=== PATIENT | female | born 1965 | race Caucasian/White ===

== ENCOUNTER 2017-11-13 16:41 | Emergency (ER) | payer OTHER, SELFPAY ==
[2017-11-13 16:48] VITALS: BP 117/56; PULSE 53; RESP 18; TEMP 36.5; O2SAT 100; BMI 21.4
--- NOTE | 2017-11-13 17:02 | DI.RAD.S_ITS ---
PROCEDURE: XR ANKLE RT MIN 3V INDICATIONS: R ankle pain. Injury from twist R ankle TECHNIQUE: 2 views of the ankle were acquired. COMPARISON: None. FINDINGS: Bones: There are comminuted fractures of the distal tibial and fibular shafts. There is extension of the fibular fracture to the tibiotalar syndesmosis which appears slightly widened. There is slight lateral angulation of the distal component. There is slight posterior angulation of the tibial fracture. Soft tissues: No tibiotalar joint effusion. Achilles tendon appears intact. IMPRESSION: 1. Comminuted fractures of the distal tibia and fibula as described. Dictated by: Daniele Shipley M.D. on 11/13/2017 at 17:37 Approved by: Daniele Shpiley M.D. on 11/13/2017 at 17:46
--- NOTE | 2017-11-13 17:33 | ED.LOWEXIN ---
HPI - Extremity Injury (Lower) <Hilary Dietz PA-C - Last Filed: 11/13/17 22:07> General Chief Complaint: Extremity Injury, Lower Stated Complaint: RIGHT ANKLE INJURY Time Seen by Provider: 11/13/17 16:59 Source: patient Mode of arrival: wheelchair Limitations: no limitations and physical limitation History of Present Illness HPI Narrative: this 51-year-old female was getting off of her boat when she got her right ankle caught on the dock line, and was hung up and fell. She had pain right away and was unable to walk on that side. She denies any other injury, no head contusion or LOC. She states that she simply tripped and did not have any dizziness, chest pain, or other new symptoms leading up to the fall. Last meal and drinks just over 3 hours ago. Related Data Home Medications Medication Instructions Recorded Confirmed levothyroxine 1 tab PO DAILY 11/13/17 11/13/17 Previous Rx's Medication Instructions Recorded hydrocodone-acetaminophen 2 tab PO Q6H PRN #12 tab 11/13/17 Allergies Allergy/AdvReac Type Severity Reaction Status Date / Time No Known Drug Allergies Allergy Verified 11/13/17 16:59 Review of Systems <Hilary Dietz PA-C - Last Filed: 11/13/17 22:07> Review of Systems All systems reviewed & are unremarkable except as noted in HPI and below PFSH <Hilary Dietz PA-C - Last Filed: 11/13/17 22:07> Comment: + ETOH, no street drugs Exam <SIMON Leigh Last Filed: 11/13/17 22:07> Initial Vital Signs Initial Vital Signs: Vital Signs Temperature 97.7 F 11/13/17 16:48 Pulse Rate 53 L 11/13/17 16:48 Respiratory Rate 18 11/13/17 16:48 Blood Pressure 117/56 L 11/13/17 16:48 Pulse Oximetry 100 11/13/17 16:48 GENERAL APPEARANCE: Patient sitting comfortably, in no distress. LUNGS: Clear to auscultation bilaterally. HEART: Rate and rhythm regular without murmur, normal S1 and S2, no S3 or S4. MUSCULOSKELETAL: Right distal LE/proximal ankle effusion, ankle and foot held in lateral deviation. tender throughout these areas, no tenderness over the metatarsals, toes, tavarez or knee. NEUROVASCULAR: Right foot sensation is grossly intact, DP pulse + <Ochoa Shaffer DO - Last Filed: 11/13/17 23:44> Initial Vital Signs Initial Vital Signs: Vital Signs Temperature 97.7 F 11/13/17 16:48 Pulse Rate 53 L 11/13/17 16:48 Respiratory Rate 18 11/13/17 16:48 Blood Pressure 117/56 L 11/13/17 16:48 Pulse Oximetry 100 11/13/17 16:48 Course <Hilary Dietz PA-C - Last Filed: 11/13/17 22:07> Additional Information: Posterior and U splint placed per nursing and Dr. Shaffer (LE straightened a little bit to place). Patient tolerated well and reported feeling more comfortable in the splint. Instructed regarding need for nonweightbearing, elevation and she is agreeable. Spoke with Dr. Leon who reviewed films and advised that surgery is needed, but patient could be splinted and follow up on Wednesday as outpatient. Patient will return if any problems over the weekend, otherwise will call Dr. Leon's office 1st thing on Wednesday to arrange for follow-up and surgical scheduling. Orders Ordered: ED Orders 11/13/17 17:02 XR ankle RT min 3V Stat 11/13/17 17:50 CT LE RT wo con Stat Discontinued Medications Hydrocodone Bitart/Acetaminophen ([place] 5/325) 2 tab PO NOW ONE Stop: 11/13/17 17:59 Last Admin: 11/13/17 18:12 Dose: Hydrocodone Bitart/Acetaminophen (Vicodin Prepack) 1 bottle MISC SEEINSTR ONE Stop: 11/13/17 20:02 Last Admin: 11/13/17 20:19 Dose: 1 bottle Hydromorphone HCl (Dilaudid) 0.5 mg IV NOW ONE Stop: 11/13/17 18:12 Last Admin: 11/13/17 18:16 Dose: 0.5 mg Ibuprofen (Advil) 400 mg PO NOW ONE Stop: 11/13/17 18:52 Last Admin: 11/13/17 19:14 Dose: 400 mg Naproxen (Naprosyn) 500 mg PO NOW ONE Stop: 11/13/17 17:59 Last Admin: 11/13/17 18:13 Dose: Vital Signs - 8 hr 11/13/17 16:48 11/13/17 19:11 11/13/17 20:47 Temperature 97.7 F Pulse Rate 53 L 59 L 74 Respiratory Rate 18 18 18 Blood Pressure 117/56 L 115/67 Blood Pressure [Left Arm] 96/57 L Pulse Oximetry 100 97 98 <Ochoa Shaffer DO - Last Filed: 11/13/17 23:44> Orders Ordered: ED Orders 11/13/17 17:02 XR ankle RT min 3V Stat 11/13/17 17:50 CT LE RT wo con Stat Discontinued Medications Hydrocodone Bitart/Acetaminophen ([place] 5/325) 2 tab PO NOW ONE Stop: 11/13/17 17:59 Last Admin: 11/13/17 18:12 Dose: Hydrocodone Bitart/Acetaminophen (Vicodin Prepack) 1 bottle MISC SEEINSTR ONE Stop: 11/13/17 20:02 Last Admin: 11/13/17 20:19 Dose: 1 bottle Hydromorphone HCl (Dilaudid) 0.5 mg IV NOW ONE Stop: 11/13/17 18:12 Last Admin: 11/13/17 18:16 Dose: 0.5 mg Ibuprofen (Advil) 400 mg PO NOW ONE Stop: 11/13/17 18:52 Last Admin: 11/13/17 19:14 Dose: 400 mg Naproxen (Naprosyn) 500 mg PO NOW ONE Stop: 11/13/17 17:59 Last Admin: 11/13/17 18:13 Dose: Vital Signs - 8 hr 11/13/17 16:48 11/13/17 19:11 11/13/17 20:47 Temperature 97.7 F Pulse Rate 53 L 59 L 74 Respiratory Rate 18 18 18 Blood Pressure 117/56 L 115/67 Blood Pressure [Left Arm] 96/57 L Pulse Oximetry 100 97 98 MDM - Extremity Injury (Lower) <Hilary Dietz PA-C - Last Filed: 11/13/17 22:07> Imaging Data tib fib: Radiologist's impression: [address] [address] [address] Scan Report Signed Patient: TESS FRANKS LMR#: [id number] : 1965Acct:[id number] Age/Sex: 51 / FDate of Service: 11/13/17 Loc: ED Accession Number: [id number] Procedure: CT LE RT wo con Ordering Provider: Hilary Dietz P.A-C PROCEDURE: CT LE RT WO CON INDICATIONS: tib fib fx TECHNIQUE: Noncontrast 1-1.5 mm axial sections acquired from above the tibiotalar joint to the bottom of the calcaneus, with coronal and sagittal reformats. COMPARISON: None. FINDINGS: Image quality: Excellent. Bones: There is a comminuted fracture of the distal tibial diaphysis. There is also a minimally displaced fracture of the posterior malleolus of the distal tibia extending to the tibiotalar joint. There is also mildly displaced fracture of the lateral tibia distally along the tibiotalar joint. A comminuted fracture is demonstrated in the distal fibular shaft extending to the tibiofibular syndesmosis. No proximal tibial or fibular fracture. There is a fixation darwin within the visualized distal femur and fixation screw. Soft tissues: There is soft tissue edema along the distal tibial and fibular fractures. Visualized flexor, extensor, peroneal, and Achilles tendons appear grossly intact. IMPRESSION: 1. Comminuted fractures of the distal tibia and fibula as described. Dictated by: Daniele Shipley M.D. on 11/13/2017 at 19:43 Approved by: Daniele Shipley M.D. on 11/13/2017 at 2 [facility] DATE TYPE STATUS AUTHOR Shiloh 11/13/17 17:50 Daniele Shipley 11/13/17 17:02 Daniele Shipley Delfin Franksi L 51, F103/01/1965 DEP ER, ED - [facility] ED: R12 162.56cm 56.699kg BSA: 1.60m? BMI: 21.5kg/m? Extremity Injury, Lower Search Chart No Known Drug Allergies ONSET Today 20:[address] [address] XRay Report Signed Patient: TESS FRANKS LMR#: [id number] : 1965Acct:[id number] Age/Sex: 51 / FDate of Service: 11/13/17 Loc: ED Accession Number: [id number] Procedure: XR ankle RT min 3V Ordering Provider: Hilary Dietz P.A-C PROCEDURE: XR ANKLE RT MIN 3V INDICATIONS: R ankle pain. Injury from twist R ankle TECHNIQUE: 2 views of the ankle were acquired. COMPARISON: None. FINDINGS: Bones: There are comminuted fractures of the distal tibial and fibular shafts. There is extension of the fibular fracture to the tibiotalar syndesmosis which appears slightly widened. There is slight lateral angulation of the distal component. There is slight posterior angulation of the tibial fracture. Soft tissues: No tibiotalar joint effusion. Achilles tendon appears intact. IMPRESSION: 1. Comminuted fractures of the distal tibia and fibula as described. Dictated by: Daniele Shipley M.D. on 11/13/2017 at 17:37 Approved by: Daniele Shipley M.D. on 11/13/2017 at 17:46 Discharge Plan Departure Patient Disposition: Home Clinical Impression: Tibia/fibula fracture Discharge Date/Time: 11/13/17 20:30 Interventions: ED Discharge Assessment Last Done: 11/13/17 20:47 Instructions: DI for Shinbone Fracture Activity Restrictions/Additional Instructions: please keep the splint on at all times. You should not be weight-bearing on your right leg at all. Use the crutches when you are getting to the bathroom or bed. Keep your leg elevated at all times otherwise (prop it up on pillows above your heart). Take the pain medicine prescribed as needed, and you can also continue your usual Naproxen/Aleve along with this. follow-up as we talked about if you have any acutely worsening symptoms or problems with your splint over the weekend. I have talked with Dr. Leon who is financial reporting consultant for [facility], and she has reviewed your films. She advises that this does need surgery, but that you can go home for the weekend. She wants you to call her office 1st thing on Wednesday morning, and be seen there on Wednesday so that they can coordinate and schedule with you for surgery next week. She will coordinate things on her and, but when you call on Wednesday, be sure to let the medical office receptionist assistant know that Dr. Leon said you need to be seen on Wednesday Prescriptions: New hydrocodone-acetaminophen 5-325 mg tablet 2 tab PO Q6H PRN (Reason: fracture pain) Qty: 12 RF: 0 No Action levothyroxine 88 mcg tablet 1 tab PO DAILY RF: 0 Referrals: Afua Funk MD [Non-Staff] - Yadira Leon MD [Physician] - <Ochoa Shaffer DO - Last Filed: 11/13/17 23:44> Cosign ED Attending Liborio Attestation: I was available for consultation during this patient's emergency department encounter
--- NOTE | 2017-11-13 17:37 | ED_ITS ---
HPI - Extremity Injury (Lower) <Hilary Dietz PA-C - Last Filed: 11/13/17 22:07> General Chief Complaint: Extremity Injury, Lower Stated Complaint: RIGHT ANKLE INJURY Time Seen by Provider: 11/13/17 16:59 Source: patient Mode of arrival: wheelchair Limitations: no limitations and physical limitation History of Present Illness HPI Narrative: this 51-year-old female was getting off of her boat when she got her right ankle caught on the dock line, and was hung up and fell. She had pain right away and was unable to walk on that side. She denies any other injury, no head contusion or LOC. She states that she simply tripped and did not have any dizziness, chest pain, or other new symptoms leading up to the fall. Last meal and drinks just over 3 hours ago. Related Data Home Medications Medication Instructions Recorded Confirmed levothyroxine 1 tab PO DAILY 11/13/17 11/13/17 Previous Rx's Medication Instructions Recorded hydrocodone-acetaminophen 2 tab PO Q6H PRN #12 tab 11/13/17 Allergies Allergy/AdvReac Type Severity Reaction Status Date / Time No Known Drug Allergies Allergy Verified 11/13/17 16:59 Review of Systems <Hilary Dietz PA-C - Last Filed: 11/13/17 22:07> Review of Systems All systems reviewed & are unremarkable except as noted in HPI and below PFSH <Hilary Dietz PA-C - Last Filed: 11/13/17 22:07> Comment: + ETOH, no street drugs Exam <SIMON Leigh Last Filed: 11/13/17 22:07> Initial Vital Signs Initial Vital Signs: Vital Signs Temperature 97.7 F 11/13/17 16:48 Pulse Rate 53 L 11/13/17 16:48 Respiratory Rate 18 11/13/17 16:48 Blood Pressure 117/56 L 11/13/17 16:48 Pulse Oximetry 100 11/13/17 16:48 GENERAL APPEARANCE: Patient sitting comfortably, in no distress. LUNGS: Clear to auscultation bilaterally. HEART: Rate and rhythm regular without murmur, normal S1 and S2, no S3 or S4. MUSCULOSKELETAL: Right distal LE/proximal ankle effusion, ankle and foot held in lateral deviation. tender throughout these areas, no tenderness over the metatarsals, toes, tavarez or knee. NEUROVASCULAR: Right foot sensation is grossly intact, DP pulse + <Ochoa Shaffer DO - Last Filed: 11/13/17 23:44> Initial Vital Signs Initial Vital Signs: Vital Signs Temperature 97.7 F 11/13/17 16:48 Pulse Rate 53 L 11/13/17 16:48 Respiratory Rate 18 11/13/17 16:48 Blood Pressure 117/56 L 11/13/17 16:48 Pulse Oximetry 100 11/13/17 16:48 Course <Hilary Dietz PA-C - Last Filed: 11/13/17 22:07> Additional Information: Posterior and U splint placed per nursing and Dr. Shaffer (LE straightened a little bit to place). Patient tolerated well and reported feeling more comfortable in the splint. Instructed regarding need for nonweightbearing, elevation and she is agreeable. Spoke with Dr. Leon who reviewed films and advised that surgery is needed, but patient could be splinted and follow up on Wednesday as outpatient. Patient will return if any problems over the weekend, otherwise will call Dr. Leon's office 1st thing on Wednesday to arrange for follow-up and surgical scheduling. Orders Ordered: ED Orders 11/13/17 17:02 XR ankle RT min 3V Stat 11/13/17 17:50 CT LE RT wo con Stat Discontinued Medications Hydrocodone Bitart/Acetaminophen ([place] 5/325) 2 tab PO NOW ONE Stop: 11/13/17 17:59 Last Admin: 11/13/17 18:12 Dose: Hydrocodone Bitart/Acetaminophen (Vicodin Prepack) 1 bottle MISC SEEINSTR ONE Stop: 11/13/17 20:02 Last Admin: 11/13/17 20:19 Dose: 1 bottle Hydromorphone HCl (Dilaudid) 0.5 mg IV NOW ONE Stop: 11/13/17 18:12 Last Admin: 11/13/17 18:16 Dose: 0.5 mg Ibuprofen (Advil) 400 mg PO NOW ONE Stop: 11/13/17 18:52 Last Admin: 11/13/17 19:14 Dose: 400 mg Naproxen (Naprosyn) 500 mg PO NOW ONE Stop: 11/13/17 17:59 Last Admin: 11/13/17 18:13 Dose: Vital Signs - 8 hr 11/13/17 16:48 11/13/17 19:11 11/13/17 20:47 Temperature 97.7 F Pulse Rate 53 L 59 L 74 Respiratory Rate 18 18 18 Blood Pressure 117/56 L 115/67 Blood Pressure [Left Arm] 96/57 L Pulse Oximetry 100 97 98 <Ochoa Shaffer DO - Last Filed: 11/13/17 23:44> Orders Ordered: ED Orders 11/13/17 17:02 XR ankle RT min 3V Stat 11/13/17 17:50 CT LE RT wo con Stat Discontinued Medications Hydrocodone Bitart/Acetaminophen ([place] 5/325) 2 tab PO NOW ONE Stop: 11/13/17 17:59 Last Admin: 11/13/17 18:12 Dose: Hydrocodone Bitart/Acetaminophen (Vicodin Prepack) 1 bottle MISC SEEINSTR ONE Stop: 11/13/17 20:02 Last Admin: 11/13/17 20:19 Dose: 1 bottle Hydromorphone HCl (Dilaudid) 0.5 mg IV NOW ONE Stop: 11/13/17 18:12 Last Admin: 11/13/17 18:16 Dose: 0.5 mg Ibuprofen (Advil) 400 mg PO NOW ONE Stop: 11/13/17 18:52 Last Admin: 11/13/17 19:14 Dose: 400 mg Naproxen (Naprosyn) 500 mg PO NOW ONE Stop: 11/13/17 17:59 Last Admin: 11/13/17 18:13 Dose: Vital Signs - 8 hr 11/13/17 16:48 11/13/17 19:11 11/13/17 20:47 Temperature 97.7 F Pulse Rate 53 L 59 L 74 Respiratory Rate 18 18 18 Blood Pressure 117/56 L 115/67 Blood Pressure [Left Arm] 96/57 L Pulse Oximetry 100 97 98 MDM - Extremity Injury (Lower) <Hilary Dietz PA-C - Last Filed: 11/13/17 22:07> Imaging Data tib fib: Radiologist's impression: [address] [address] [address] Scan Report Signed Patient: TESS FRANKS LMR#: [id number] : 1965Acct:[id number] Age/Sex: 51 / FDate of Service: 11/13/17 Loc: ED Accession Number: [id number] Procedure: CT LE RT wo con Ordering Provider: Hilary Dietz P.A-C PROCEDURE: CT LE RT WO CON INDICATIONS: tib fib fx TECHNIQUE: Noncontrast 1-1.5 mm axial sections acquired from above the tibiotalar joint to the bottom of the calcaneus, with coronal and sagittal reformats. COMPARISON: None. FINDINGS: Image quality: Excellent. Bones: There is a comminuted fracture of the distal tibial diaphysis. There is also a minimally displaced fracture of the posterior malleolus of the distal tibia extending to the tibiotalar joint. There is also mildly displaced fracture of the lateral tibia distally along the tibiotalar joint. A comminuted fracture is demonstrated in the distal fibular shaft extending to the tibiofibular syndesmosis. No proximal tibial or fibular fracture. There is a fixation darwin within the visualized distal femur and fixation screw. Soft tissues: There is soft tissue edema along the distal tibial and fibular fractures. Visualized flexor, extensor, peroneal, and Achilles tendons appear grossly intact. IMPRESSION: 1. Comminuted fractures of the distal tibia and fibula as described. Dictated by: Daniele Shipley M.D. on 11/13/2017 at 19:43 Approved by: Daniele Shipley M.D. on 11/13/2017 at 2 [facility] DATE TYPE STATUS AUTHOR [place] 11/13/17 17:50 Daniele Shipley 11/13/17 17:02 Daniele Shipley Delfin Franksi L 51, F103/01/1965 DEP ER, ED - Main ED: R12 162.56cm 56.699kg BSA: 1.60m? BMI: 21.5kg/m? Extremity Injury, Lower Search Chart No Known Drug Allergies ONSET Today 20:[address] [address] XRay Report Signed Patient: TESS FRANKS LMR#: [id number] : 1965Acct:[id number] Age/Sex: 51 / FDate of Service: 11/13/17 Loc: ED Accession Number: [id number] Procedure: XR ankle RT min 3V Ordering Provider: Hilary Dietz P.A-C PROCEDURE: XR ANKLE RT MIN 3V INDICATIONS: R ankle pain. Injury from twist R ankle TECHNIQUE: 2 views of the ankle were acquired. COMPARISON: None. FINDINGS: Bones: There are comminuted fractures of the distal tibial and fibular shafts. There is extension of the fibular fracture to the tibiotalar syndesmosis which appears slightly widened. There is slight lateral angulation of the distal component. There is slight posterior angulation of the tibial fracture. Soft tissues: No tibiotalar joint effusion. Achilles tendon appears intact. IMPRESSION: 1. Comminuted fractures of the distal tibia and fibula as described. Dictated by: Daniele Shipley M.D. on 11/13/2017 at 17:37 Approved by: Daniele Shipley M.D. on 11/13/2017 at 17:46 Discharge Plan Departure Patient Disposition: Home Clinical Impression: Tibia/fibula fracture Discharge Date/Time: 11/13/17 20:30 Interventions: ED Discharge Assessment Last Done: 11/13/17 20:47 Instructions: DI for Shinbone Fracture Activity Restrictions/Additional Instructions: please keep the splint on at all times. You should not be weight-bearing on your right leg at all. Use the crutches when you are getting to the bathroom or bed. Keep your leg elevated at all times otherwise (prop it up on pillows above your heart). Take the pain medicine prescribed as needed, and you can also continue your usual Naproxen/Aleve along with this. follow-up as we talked about if you have any acutely worsening symptoms or problems with your splint over the weekend. I have talked with Dr. Leon who is regional business manager for orthopedics [facility], and she has reviewed your films. She advises that this does need surgery, but that you can go home for the weekend. She wants you to call her office 1st thing on Wednesday morning, and be seen there on Wednesday so that they can coordinate and schedule with you for surgery next week. She will coordinate things on her and , but when you call on Wednesday, be sure to let the applied psychology chair know that Dr. Leon said you need to be seen on Wednesday Prescriptions: New hydrocodone-acetaminophen 5-325 mg tablet 2 tab PO Q6H PRN (Reason: fracture pain) Qty: 12 RF: 0 No Action levothyroxine 88 mcg tablet 1 tab PO DAILY RF: 0 Referrals: Afua Funk MD [Non-Staff] - Yadira Leon MD [Physician] - <Ochoa Shaffer DO - Last Filed: 11/13/17 23:44> Cosign ED Attending Liborio Attestation: I was available for consultation during this patient's emergency department encounter
--- NOTE | 2017-11-13 17:50 | DI.CT.S_ITS ---
PROCEDURE: CT LE RT WO CON INDICATIONS: tib fib fx TECHNIQUE: Noncontrast 1-1.5 mm axial sections acquired from above the tibiotalar joint to the bottom of the calcaneus, with coronal and sagittal reformats. COMPARISON: None. FINDINGS: Image quality: Excellent. Bones: There is a comminuted fracture of the distal tibial diaphysis. There is also a minimally displaced fracture of the posterior malleolus of the distal tibia extending to the tibiotalar joint. There is also mildly displaced fracture of the lateral tibia distally along the tibiotalar joint. A comminuted fracture is demonstrated in the distal fibular shaft extending to the tibiofibular syndesmosis. No proximal tibial or fibular fracture. There is a fixation darwin within the visualized distal femur and fixation screw. Soft tissues: There is soft tissue edema along the distal tibial and fibular fractures. Visualized flexor, extensor, peroneal, and Achilles tendons appear grossly intact. IMPRESSION: 1. Comminuted fractures of the distal tibia and fibula as described. Dictated by: Daniele Shipley M.D. on 11/13/2017 at 19:43 Approved by: Daniele Shipley M.D. on 11/13/2017 at 20:04
[2017-11-13] MEDS: HYDROMORPHONE 1 MG INJ 0.5 MG IV (18:16)
--- NOTE | 2017-11-13 18:47 | PC.NURSE ---
posterior and stir up
[2017-11-13 19:11] VITALS: BP 96/57; PULSE 59; RESP 18; O2SAT 97
[2017-11-13] MEDS: IBUPROFEN 400 MG TABLET PO (19:14)
[2017-11-13] MEDS: HYDROCODONE/ACET 5/325 PREPACK 1 BOTTLE MISC (20:19)
[2017-11-13 20:47] VITALS: BP 115/67; PULSE 74; RESP 18; O2SAT 98
--- NOTE | 2017-11-18 16:26 | PC.NURSE ---
Pt feeling better following visit,pt did not have anything that we could have improved on
== END 2017-11-13 20:30 | disposition home or self-care (01) ==
PROVIDERS: Emergency Provider Internal Medicine
DX: S82.201A Unspecified fracture of shaft of right tibia, initial encounter for closed fracture (principal); S82.401A Unspecified fracture of shaft of right fibula, initial encounter for closed fracture; W18.43XA Slipping, tripping and stumbling without falling due to stepping from one level to another, initial encounter
CPT/HCPCS: 29515; 73610; 73700; 96374; 99283; 99284; J1170

== ENCOUNTER 2017-11-15 13:28 | Day surgery (SDC) | payer OTHER, SELFPAY ==
[2017-11-15] VITALS (11 sets, daily range): BP systolic 100–132; BP diastolic 63–79; PULSE 64–80; RESP 10–18; TEMP 36.6–37.1; O2SAT 96–100; BMI 22.1
--- NOTE | 2017-11-15 | DI.RAD.S_ITS ---
PROCEDURE: XR ANKLE RT 2V INDICATIONS: ORIF RIGHT ANKLE TECHNIQUE: 4 views of the ankle were acquired. COMPARISON: [facility], CR, XR ANKLE RT MIN 3V, 11/13/2017, 17:17. FINDINGS: 4 spot fluoroscopic intraoperative views demonstrating plate and screw fixation of the distal tibia and fibula. There is expected intraoperative alignment. Dictated by: Ahmet Gonzales M.D. on 11/16/2017 at 10:28 Approved by: Ahmet Gonzales M.D. on 11/16/2017 at 10:28
--- NOTE | 2017-11-15 | DI.RAD.S_ITS ---
PROCEDURE: XR ANKLE RT MIN 3V INDICATIONS: POST OPERATIVE RIGHT ANKLE TECHNIQUE: 3 views of the ankle were acquired. COMPARISON: Preoperative imaging 11/13/17 and subsequently.. FINDINGS: Bones: No previously unidentified fractures or dislocations. Virtual anatomic alignment established after ORIF across the multiple complex comminuted fracture planes previously present. Ankle mortise is normally aligned. No suspicious bony lesions. Soft tissues: No tibiotalar joint effusion. Achilles tendon appears normal. IMPRESSION: Virtual anatomic alignment established after ORIF of a previously complex comminuted and significantly displaced set of fractures involving the distal tibia and fibula. Dictated by: Geovanni Guo M.D. on 11/15/2017 at 19:59 Approved by: Geovanni Guo M.D. on 11/15/2017 at 20:01
[2017-11-15] MEDS: LACTATED RINGERS 1,000 ML 42 ML IV ×2 (13:51→17:57)
--- NOTE | 2017-11-15 15:39 | PM.PREOP ---
Pre-operative Note Interval Note Pre-op Check: Yes History & Physical Reviewed by Physician and Yes Exam Performed Changes: No
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
[2017-11-15] MEDS: CEFAZOLIN 2 GM/100 ML FROZ.PIGGY IV ×2 (16:08→23:52)
--- NOTE | 2017-11-15 16:42 | SUR.OPER ---
Supine on padded OR bed, head on pillow, arms secured on padded arm boards at <90 degrees abduction, legs uncrossed, safety belt at thigh, tape over blanket over lower legs.
[2017-11-15] MEDS: BUPIVACAINE 0.5% W/ EPI (PF) VIAL 30 ML INJ (16:55)
--- NOTE | 2017-11-15 20:13 | PC.NURSE ---
[place] shift note: Patient admitted to AC form PACU S/P ORIF tibia/fibula FX by Dr. Leon. Patient awake, alert and calm, cooperative. Long soft half cast to posterior leg extending from mid foot to below the knee, secured with apollo wrap. CMS intact to RLE. SCD to LLE. No c/o pain, discomfort, and nausea. Patient sitting up in bed tolerating PO intake and fluids. VSS and afebrile. Call light within reach.
[2017-11-15] MEDS: ASPIRIN EC 81 MG TABLET PO (20:55)
[2017-11-15] MEDS: DOCUSATE 100 MG CAPSULE PO (20:55)
[2017-11-15] MEDS: LACTATED RINGERS 1,000 ML 75 ML IV (20:56)
[2017-11-15] MEDS: HYDROCODONE/ACET 5/325 TABLET 2 TAB PO (21:00)
[2017-11-15] MEDS: HYDROMORPHONE 2 MG TABLET PO (23:52)
[2017-11-16 00:25] VITALS: BP 116/69; PULSE 70; RESP 15; TEMP 36.7; O2SAT 98
--- NOTE | 2017-11-16 00:51 | PC.NURSE ---
shift note met with pt at start of shift. AOx3. 98% on RA. Bowel sounds present. Good CMS. No numbness/ tingling. Trace +1 non pitting edema on right foot. No drainage, soft cast on right leg secured with apollo bandage. Pain 5/10. Provided PRN dilaudid. Pt currently asleep. Call light in reach.
[2017-11-16] MEDS: HYDROCODONE/ACET 5/325 TABLET 2 TAB PO ×2 (04:12→10:32)
[2017-11-16 04:24] VITALS: BP 112/60; PULSE 64; RESP 16; TEMP 36.7; O2SAT 98
[2017-11-16] MEDS: LEVOTHYROXINE 88 MCG TABLET PO (06:49)
[2017-11-16 07:01] LABS: Hematocrit 29.1 % (36-46); Hemoglobin 9.7 g/dL (12.0-16.0); Mean Corpuscular HGB Conc 33.4 % (30-36); Mean Corpuscular Hemoglobin 31.3 PG (26-34); Mean Corpuscular Volume 93.8 fL (80-100); Platelet Count 179 X10^3/uL (150-400); Red Cell Distribution Width 13.4 % (11.6-14.8); White Blood Cell Count 14.4 X10^3/uL (4.5-11.0)
[2017-11-16 07:30] VITALS: BP 107/60; PULSE 64; RESP 16; TEMP 36.9; O2SAT 99
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
[2017-11-16 08:37] VITALS: PULSE 71; RESP 14; O2SAT 97
[2017-11-16] MEDS: CEFAZOLIN 2 GM/100 ML FROZ.PIGGY IV (08:49)
[2017-11-16] MEDS: POLYETHYLENE GLYCOL 3350 17 GM POWD.PACK PO (08:50)
[2017-11-16] MEDS: ASPIRIN EC 81 MG TABLET PO (08:50)
[2017-11-16] MEDS: DOCUSATE 100 MG CAPSULE PO (08:50)
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
--- NOTE | 2017-11-16 10:17 | PC.NURSE ---
Addendum entered by Cassy Lemos R.N. 11/16/17 14:28: Reviewed w/ SIMON Riley that pt is suppose to d/c home on ASA 81mg po BID, RX discharge paperwork updated by this RN to reflect changes. Pt aware to make f/u appt and follow non-weight bearing to RLE. Pt left with all belongings. Original Note: Pt A&Ox3. Soft cast intact to RLE, unable to palpate pedal pulse due to cast, able to wiggle toes. Toes warm/dry. 2nd dose of IV ABX infused. IV H.L. Noted d/c orders home, pending P.T. eval.
[2017-11-16 11:30] VITALS: BP 107/62; PULSE 82; RESP 16; TEMP 37.1; O2SAT 99
--- NOTE | 2017-11-16 13:42 | PT.IPTN ---
Current Diagnoses Unspecified fracture of shaft of right tibia, initial encounter for closed fracture (11/15/17) Surgery Performed Operation Date: 11/15/17 15:00 Actual Procedures p ORIF Tibia & fibula Ankle(Right) - Yadira Leon MD Physical Therapy Treatment Note M2 PT-IP Current Condition Start: 11/16/17 12:35 Freq: NEEDED Status: Discharge Protocol: Document 11/16/17 09:35 AB (Rec: 11/16/17 13:13 AB [id number]) Physical Therapy Current Condition Current Condition Evaluation Date 11/16/17 Treatment Diagnosis s/p R tib/fib fracture s/p ORIF Onset Date 11/15/17 Precautions Brace R ankle on a soft cast Weight Bearing Status Weight Bearing Status Non-Weight Bearing M3 PT-IP Subjective Start: 11/16/17 12:35 Freq: NEEDED Status: Discharge Protocol: Document 11/16/17 13:42 AB (Rec: 11/16/17 15:25 AB [id number]) Subjective Physical Therapy Visit Type Type Treatment Note Visit Start Time 13:42 Visit Stop Time 14:07 Total Visit Minutes 25 Number of ROOFER VINYL COATING Visits 0 Physical Therapy Visit Comments Patient Comments spouse present for caregiver training Therapy Pain Assessment Pain When Pain Assessed At Rest Pain Present Pain Present Pain Reported Location Right Leg Scale Used pain scale not stated M4 PT-IP Mobility and Gait Start: 11/16/17 12:35 Freq: NEEDED Status: Discharge Protocol: Document 11/16/17 13:42 AB (Rec: 11/16/17 15:25 AB [id number]) PT-Bed Mobility Assessment Supine to Sit Supine to Sit Standby Assistance Sit to Supine Sit to Supine Standby Assistance PT-Transfer Assessment Sit to and From Stand Sit to and from Stand Standby Assistance Gait Assessment Gait Gait Assistance Required: Standby Assistance Distance (Feet) 50 Able to Maintain Weight Bearing Status Yes During Gait Assistive Devices Assistive Device Gait Belt Orthotic/Prosthetic Devices or Brace: No Factors Limiting Gait Function Factors Limiting Gait Function Decreased Activity Tolerance Decreased Strength Limited Range of Motion Pain Poor Balance Comments Gait Comments pt educated on how to use knee scooter/roller and completed ambulation requiring SBA ~ 50 ft x 2. Stair Climbing Assessment Evaluation Level of Assist On Stairs Moderate Assistance Maximal Assistance 1 Person Assistance Devices Stair Climbing Assistive Devices Axillary Crutches Technique/Endurance Stair Climbing Direction Ascend and Descend Stair Climbing Technique Step to Step Number of Steps Climbed 1 Query Text: Stair Climbing Set # Repetitions (reps) 2 Comments Stair Climbing Comments pt completed up/down platform step mod to max A and max cues for techniques and to maintain weight bearing status . spouse was able to assist pt with stair climbing. pt stated that she is not comfortable doing stairs with use of crutches. spouse stated that pt doing sitting bump was really safe and that she did not put weight on her RLE while doing that prior to surgery. spouse also stated that he can assist pt as well. M5 PT-IP Objective Assessments Start: 11/16/17 12:35 Freq: NEEDED Status: Discharge Protocol: Document 11/16/17 09:35 AB (Rec: 11/16/17 13:13 AB [id number]) Orientation Orientation/Cognition Level of Alertness Alert Orientation Name Age Birthday Month Date Year Day of Week Place Situation Safety Awareness Understands Safety Issues Gross Range of Motion Lower Extremity ROM Assessment Right Impaired Impairments R ankle on soft case Strength Lower Extremity Strength Assessment Right Impaired Ankle NT Sensation Assessment Sensation Gross Sensation Right LE Impaired Sensation Description Numbness Comments Sensation Comments c/o slight numbness on R ankle Muscle Tone Muscle Tone WNL Yes M6 PT-IP Treatment Start: 11/16/17 12:35 Freq: NEEDED Status: Discharge Protocol: Document 11/16/17 13:42 AB (Rec: 11/16/17 15:25 [id number]) Physical Therapy Treatment Education Education Provided Weight Bearing Status Safety M7 PT-IP Assessment and Plan Start: 11/16/17 12:35 Freq: NEEDED Status: Discharge Protocol: Document 11/16/17 13:42 AB (Rec: 11/16/17 15:25 [id number]) PT Summary Assessment and Plan Potential Rehabilitation Potential Fair Summary Impairments Pain ROM Strength Balance Bed Mobility Transfers Gait Activity Tolerance Progress Towards Goals Slow Progress - Other Assessment Summary pt requiring SBA with ambulation using knee scooter/ roller. spouse is capable of assisting pt at home. Goals Bed Mobility Goal Independent Transfer Goal Independent Gait Goal Independent Crutches Gait Distance 100 Other Goals Short term goals: increase bed mobility and transfers to independent log term goal: increase ambulation to least restrictive device SBA ~ 100 ft Days to Meet Goals 3 Frequency of Treatment Frequency Of Treatment Twice a Day Treatment Plan Physical Therapy Treatment Plan Bed Mobility Training Transfer Training Gait Training Therapeutic Exercise Balance Retraining Post Op Education Discharge Planning Hot or Cold Pack Neuromuscular Re-ed Coordination Retraining Manual Therapy Other Recommendations and Next Treatment caregiver training; ambulation Focus using knee scooter/roller, bilateral crutches, stair climbing using crutches Recommendations To Nursing Amount of Assist Needed 1 Person Assist Discharge Recommendations PT Discharge Recommendations Home with Assistance Home Health
--- NOTE | 2017-11-16 14:15 | PM.DS.1 ---
History of Present Illness Chief complaint: [id number] Narrative: Patient sustained fractures of her distal right tibia and fibula when [place] the dock. She was brought to hospital on 11/15/2017 for right distal tibia-fibula ORIF by Dr. Leon. She remained stable postoperatively. Pain controlled with [place]. She will be at home with her helping her. She does have a roll about for ambulation. Discharge Providers Consults: 11/15/17 19:56 Consult to Discharge Planning Routine Comment: Consult to Physical Therapy Evaluate & Treat Comment: nwb right lower extremity Physician Instructions: Evaluate and Treat Consult to Respiratory Therapy Evaluate & Treat Comment: Physician Instructions: Evaluate and treat Discharge provider: Edgardo Harrison PA-C Discharge Date: 11/16/17 Exam Vital Signs (past 8 hours): - 11/16/17 07:30 11/16/17 08:37 11/16/17 11:30 Temperature 98.5 F 98.7 F Pulse Rate 64 71 82 Respiratory Rate 16 14 16 Blood Pressure 107/60 107/62 Pulse Oximetry 99 97 99 Oxygen Delivery Method Room Air Objective Labs Result Diagrams: 11/16/17 06:40 Labs: Laboratory Results - last 24 hr 11/16/17 06:40 WBC 14.4 H RBC 3.10 L Hgb 9.7 L Hct 29.1 L MCV 93.8 MCH 31.3 MCHC 33.4 RDW 13.4 Plt Count 179 Discharge Plan Discharge Plan Patient Disposition: Home Discharge comment: She will be nonweightbearing to her right leg. Keep postoperative splint and dressing in place until postop visit. She has prescription at home for hydrocodone for pain. Follow-up appointment at [facility] office in [place] in 10-12 days postop. Discharge Med Rec/Prescriptions Prescriptions: New aspirin 81 mg Tablet,Delayed Release (Dr/Ec) 81 mg PO BID Qty: 60 RF: 0 Continue levothyroxine 88 mcg tablet 1 tab PO DAILY RF: 0 Discontinued hydrocodone-acetaminophen 5-325 mg tablet 2 tab PO Q6H PRN (Reason: fracture pain) Qty: 12 RF: 0 Discharge Orders: Discharge (Order); Ordered 11/16/17 Ordered By: Edgardo Harrison Provider Discharge Instructions Diet: Diet as Tolerated Activity: Nonweightbearing right leg Visit Report/Discharge Packet Instructions: DI for Open Reduction Internal Fixation Surgery, DI for Tibial Plateau Fracture Stand Alone Forms: Surgery Discharge Discharge Data Attending Provider: Yadira Leon
--- NOTE | 2017-11-16 14:18 | P.DS_ITS ---
History of Present Illness Chief complaint: [id number] Narrative: Patient sustained fractures of her distal right tibia and fibula when [place] the dock. She was brought to hospital on 2017 for right distal tibia-fibula ORIF by Dr. Leon. She remained stable postoperatively. Pain controlled with [place]. She will be at home with her helping her. She does have a roll about for ambulation. Discharge Providers Consults: 11/15/17 19:56 Consult to Discharge Planning Routine Comment: Consult to Physical Therapy Evaluate & Treat Comment: nwb right lower extremity Physician Instructions: Evaluate and Treat Consult to Respiratory Therapy Evaluate & Treat Comment: Physician Instructions: Evaluate and treat Discharge provider: Edgardo Harrison PA-C Discharge Date: 11/16/17 Exam Vital Signs (past 8 hours): - 11/16/17 07:30 11/16/17 08:37 11/16/17 11:30 Temperature 98.5 F 98.7 F Pulse Rate 64 71 82 Respiratory Rate 16 14 16 Blood Pressure 107/60 107/62 Pulse Oximetry 99 97 99 Oxygen Delivery Method Room Air Objective Labs Result Diagrams: 11/16/17 06:40 Labs: Laboratory Results - last 24 hr 11/16/17 06:40 WBC 14.4 H RBC 3.10 L Hgb 9.7 L Hct 29.1 L MCV 93.8 MCH 31.3 MCHC 33.4 RDW 13.4 Plt Count 179 Discharge Plan Discharge Plan Patient Disposition: Home Discharge comment: She will be nonweightbearing to her right leg. Keep postoperative splint and dressing in place until postop visit. She has prescription at home for hydrocodone for pain. Follow-up appointment at [facility] office in [place] in 10-12 days postop. Discharge Med Rec/Prescriptions Prescriptions: New aspirin 81 mg Tablet,Delayed Release (Dr/Ec) 81 mg PO BID Qty: 60 RF: 0 Continue levothyroxine 88 mcg tablet 1 tab PO DAILY RF: 0 Discontinued hydrocodone-acetaminophen 5-325 mg tablet 2 tab PO Q6H PRN (Reason: fracture pain) Qty: 12 RF: 0 Discharge Orders: Discharge (Order); Ordered 11/16/17 Ordered By: Edgardo Harrison Provider Discharge Instructions Diet: Diet as Tolerated Activity: Nonweightbearing right leg Visit Report/Discharge Packet Instructions: DI for Open Reduction Internal Fixation Surgery, DI for Tibial Plateau Fracture Stand Alone Forms: Surgery Discharge Discharge Data Attending Provider: Yadira Leon
== END 2017-11-16 02:30 | disposition home or self-care (01) ==
LOC: OR 13:30 → AC 20:11
PROVIDERS: Visit Provider Orthopaedic Surgery
PROC: 0QSG04Z Reposition Right Tibia with Internal Fixation Device, Open Approach (ICD-10-PCS; CPT 27828; principal; 2017-11-15 15:00)
DX: S82.454A Nondisplaced comminuted fracture of shaft of right fibula, initial encounter for closed fracture (principal); S82.391A Other fracture of lower end of right tibia, initial encounter for closed fracture; W19.XXXA Unspecified fall, initial encounter; Y92.814 Boat as the place of occurrence of the external cause
CPT/HCPCS: 27828; 36415; 73600; 73610; 85027; 94760; 97116; 97161; J0690; J1100; J2405; J2704; J3010